=== PATIENT | female | born 1955 | race Asian ===

== ENCOUNTER 2020-11-28 10:25 | Emergency (ER) | payer BC, MEDICARE ==
[~2020-11-28] VITALS: Ht 154.9 cm; Wt 71.3 kg
[~2020-11-28 10:25] MED LIST: DAILY VITAMIN1 EAC3 PO; IRON PO; PRILOSEC OTC20 MG PO; VITAMIN B12 PO
[2020-11-28] MEDS ORDERED: KETOROLAC TROMETHAMINE 30 MG/ML VIAL IV STA (10:56)
[2020-11-28] MEDS ORDERED: SODIUM CHLORIDE 0.9% 1000ML 1,000 ML IV STA (10:56)
[2020-11-28] MEDS ORDERED: ONDANSETRON HCL INJ 2MG/ML 2ML 2 MG/ML VIAL IV STA (10:56)
[2020-11-28] MEDS ORDERED: OMEGA-3 1,0001 EACH (11:07)
[2020-11-28] MEDS ORDERED: ATORVASTATIN CA10 MG PO (11:07)
[2020-11-28] MEDS ORDERED: AMLODIPINE BESY10 MG PO (11:07)
[2020-11-28] MEDS ORDERED: VITAMIN D3250 MC1 (11:07)
[2020-11-28] MEDS ORDERED: PROTONIX20 MG PO (11:07)
[2020-11-28] MEDS ORDERED: BUPROPION XL150 MG PO (11:07)
[2020-11-28] MEDS ORDERED: OSTEO BI-FLEX1 EAC2 (11:07)
[2020-11-28] MEDS ORDERED: SODIUM CHLORIDE 0.9% 1000ML 1,000 ML ONE (11:18)
[2020-11-28] MEDS ORDERED: ACETAMINOPHEN-1 EAC3 PO (12:19)
[2020-11-28] MEDS ORDERED: ONDANSETRON ODT4 MG PO (12:19)
[2020-11-28] MEDS ORDERED: FLOMAX0.4 MG PO (12:19)
== END 2020-11-28 12:40 | disposition home or self-care (01) ==
LOC: FSED 10:42
DX: N13.2 Hydronephrosis with renal and ureteral calculous obstruction (principal)
CPT/HCPCS: 74176; 80053; 81003; 85025; 96374; 96375; 99284; J1885; J2405; J7030

== ENCOUNTER → 2024-06-08 | Day surgery (SDC) | payer MEDICARE ==
[2024-06-01 11:45] LABS: BASOPHILS # (AUTO) 0.1 (0.0-0.1); BASOPHILS % 1.3 % (0.0-1.0); EOSINOPHILS # (AUTO) 0.1 (0.0-0.4); EOSINOPHILS % 1.5 % (0.0-6.0); HEMATOCRIT 35.9 % (34.2-44.1); LYMPHOCYTES # (AUTO) 1.3 (1.0-3.2); LYMPHOCYTES % 25.5 % (18.0-39.1); MEAN CORPUSCULAR HEMOGLOBIN 20.6 pg (28-32); MEAN CORPUSCULAR HGB CONC 30.6 g/dL (31-35); MEAN CORPUSCULAR VOLUME 67.4 fL (81-99); MONOCYTES # (AUTO) 0.4 (0.2-0.8); MONOCYTES % 8.2 % (4.4-11.3); NEUTROPHILS # (AUTO) 3.3 (2.1-6.9); NEUTROPHILS % 63.3 % (38.7-80.0); PLATELET COUNT 343 x10e3/uL (140-360); RED BLOOD COUNT 5.33 x10e6/uL (3.6-5.1); RED CELL DISTRIBUTION WIDTH 14.8 % (11.7-14.4); WHITE BLOOD COUNT 5.22 x10e3/uL (4.8-10.8)
[2024-06-01 12:22] LABS: ANION GAP 13.3 mmol/L (8-16); CALCIUM 9.4 mg/dL (8.4-10.2); CREATININE, SERUM 0.72 mg/dL (0.57-1.11); POTASSIUM 4.3 mmol/L (3.5-5.1)
[~2024-06-08] MED LIST changes: +ACETAMINOPHEN-1 EAC3 PO; +AMLODIPINE BESY10 MG PO; +ATORVASTATIN CA10 MG PO; +BUPROPION XL150 MG PO; +FENTANYL CITRATE/PF 100MCG/2 ML INJ ONE; +FLOMAX0.4 MG PO; +LIDOCAINE HCL 2% LOCAL INJ 5 ML SDV VIAL INJ ONE; +MIDAZOLAM HCL 2 MG/2 ML VIAL ONE; +OMEGA-3 1,0001 EACH; +ONDANSETRON ODT4 MG PO; +OSTEO BI-FLEX1 EAC2; +PROPOFOL IV EMULSION 10 MG/ML 20 ML VIAL ONE; +PROTONIX20 MG PO; +QUETIAPINE FUMA25 MG PO; +TRAMADOL HCL100 MG; +VITAMIN D3250 MC1
[2024-06-08] MEDS: CYCLOPENTOLATE HCL 2% OPTH SOLN 2 ML BTL OP ONE (07:39)
[2024-06-08] MEDS: PHENYLEPHRINE HCL 2 ML DROPS ONE (07:39)
[2024-06-08] MEDS: GATIFLOXACIN(OPTH) 5 ML LIQD ONE (07:39)
[2024-06-08] MEDS: LACTATED RINGER'S 1,000 ML ONE (07:39)
[2024-06-08 10:19] VITALS: TEMP 97.8
[2024-06-08 10:35] VITALS: BP 130/75; PULSE 70; RESP 16; O2SAT 96
== END | disposition home or self-care (01) ==
LOC: OR 07:04
PROVIDERS: ATTEND Ophthalmology
DX: H25.11 Age-related nuclear cataract, right eye (principal); I10 Essential (primary) hypertension; K21.9 Gastro-esophageal reflux disease without esophagitis; E78.5 Hyperlipidemia, unspecified; M06.9 Rheumatoid arthritis, unspecified; Z88.6 Allergy status to analgesic agent; Z88.0 Allergy status to penicillin; Z01.810 Encounter for preprocedural cardiovascular examination; Z01.812 Encounter for preprocedural laboratory examination; Z79.899 Other long term (current) drug therapy
CPT/HCPCS: 36415; 66984; 80048; 85025; 93005; J2003; J2250; J2704; J3010; J7121; V2632